=== PATIENT | male | born 1955 ===

== ENCOUNTER 2020-03-27 16:11 | Emergency (ER) | payer OTHER ==
[~2020-03-27] VITALS: Ht 180.3 cm; Wt 90.7 kg
== END 2020-03-27 17:49 | disposition home or self-care (01) ==
LOC: ER 16:11
DX: T16.2XXA Foreign body in left ear, initial encounter (principal); X58.XXXA Exposure to other specified factors, initial encounter; Y93.89 Activity, other specified; Y92.89 Other specified places as the place of occurrence of the external cause; Y99.8 Other external cause status

== ENCOUNTER 2021-07-12 15:30 | Outpatient (CLI) | payer OTHER | END 2021-07-12 15:45 | disposition home or self-care (01) | LOC: PPH VACUNA 15:30 | PROVIDERS: ATTEND Emergency Medicine Pediatric Emergency Medicine | DX: Z23 Encounter for immunization (principal) ==